=== PATIENT | female | born 1985 | race Caucasian/White ===

== ENCOUNTER 2021-01-31 15:36 | Outpatient (CLI) | payer BC, SELFPAY ==
[2021-01-31 17:35] LABS: Hematocrit 37.4 % (37.0-47.0); Hemoglobin 12.8 g/dL (12.0-15.0); Mean Corpuscular HGB Conc 34.2 g/dl (32-36); Mean Corpuscular Hemoglobin 31.1 pg (26-34); Mean Corpuscular Volume 90.8 fl (80-100); Mean Platelet Volume 10.3 fl (7.4-10.4); Platelet Count Result 242 k/mm3 (150-375); Red Blood Count 4.12 M/mm3 (4.2-5.4); Red Cell Distribution Width 13.8 % (11.5-14.5); White Blood Count 11.1 K/mm3 (4.5-10.0)
[2021-02-01 08:39] LABS: Rapid Plasma Reagin Non-Reactive (NonReactive)
== END 2021-01-31 15:37 | disposition home or self-care (01) ==
PROVIDERS: PCP Obstetrics & Gynecology Gynecology; Visit Provider Obstetrics & Gynecology Gynecology
DX: Z01.818 Encounter for other preprocedural examination (principal)
CPT/HCPCS: 36415; 85027; 86592; 86850; 86900; 86901

== ENCOUNTER 2021-02-01 07:04 | Inpatient (IN) | payer BC, SELFPAY ==
[2021-02-01] VITALS (43 sets, daily range): BP systolic 99–143; BP diastolic 45–126; PULSE 66–100; RESP 16; TEMP 36.6–37.1; O2SAT 92–100; BMI 29.0
--- NOTE | 2021-02-01 07:04 | LDADM ---
This patient, Marce Turcios, was admitted to Labor/Delivery/Recovery 118 on 02/01/21 at 07:04. Plans for labor, pain management and were discussed with patient. Patient/family oriented to hospital policies and general routines including ID bracelet, bed and alarms, visiting hours, pain management, procedures, bathroom and other care routines, personal items, smoking policy, room service/diet and guest tray routines, security routines, and visiting hours. Patient/Family are encouraged to report perceived risks to care and to ask questions if they do not understand what they are told or what they should do. See OBIX for further documentation.
[2021-02-01] MEDS: LACTATED RINGERS 1,000 ML 125 ML IV CONT ×3 (08:18→11:00)
--- NOTE | 2021-02-01 10:05 | WPDHPUPDATE1 ---
History and Physical Update Update Date/Time: 02/01/21 10:05 History and Physical has been reviewed, including an updated exam of the patient. There are NO changes in the patient's condition. Risks, benefits, and alternatives have been discussed and questions answered. Patient agrees to proceed with procedure.
--- NOTE | 2021-02-01 10:05 | PM.IMHP ---
H&P: HPI History of Present Illness Date/Time: 02/01/21 10:05 Chief Complaint: scheduled csection Narrative: 35 yo [id number] 39 weeks here for primary LTCS. Patient prior delivery 7#13oz ROSI. The last u/s at 36 wks gave EFW at 4067 g and FH this week is 47 cm. Discussed options with patient and decided to proceed with primary csection. In addition, patient has completed childbearing and plans BTL. Risks of csection vs vaginal delivery discussed over several visits. Risks of BTL discussed including failure and increased ectopic if fails. Agrees to proceed. [facility] Past Medical History Medical History (Updated 02/01/21 @ 10:12 by Chrissy Chun MD) Pain in right shoulder Surgical History Surgical History (Updated 04/13/20 @ 13:37 by Verna Robert) No history of previous surgery Social History Social History (Updated 04/13/20 @ 13:35 by Verna Robert) Smoking status: Never smoker Tobacco type: cigarettes Second hand tobacco smoke exposure: Yes Alcohol intake: current Drinks per week: 1 Substance use: never Additional occupation/education comments: Customs Inspector at [employer] Gender identity (if verbalized by the patient): Female Spiritual care concerns: No Meds Home Medications and Allergies Home Medications Medication Instructions Recorded Confirmed Type PNV cmb#95-ferrous fumarate-FA 1 tablet PO DAILY 01/07/21 01/07/21 History [] ergocalciferol (vitamin D2) 1,250 mcg PO WEEKLY 01/07/21 01/07/21 History [Vitamin D2] Allergies Allergy/AdvReac Type Severity Reaction Status Date / Time No Known Allergies Allergy Unverified 11/16/14 15:56 Vital Signs Vital Signs - 24 hr 02/01/21 07:27 02/01/21 07:29 Pulse Rate 88 93 Blood Pressure 143/126 H 108/62 Exam Const: General: healthy appearing and comfortable Resp: Effort & Inspection: normal respiratory effort Auscultation: clear to auscultation bilaterally Cardio: Rate: regular rate Rhythm: regular rhythm GI: Inspection: normal to inspection GI Palp: No abdominal tenderness and Yes Other GI palpation findings present (FH 47 cm) Assessment and Plan Assessment and plan (1) 39 weeks gestation of : Code(s): Z3A.39 - 39 weeks gestation of Status: Acute (2) Macrosomia: Code(s): P08.0 - Exceptionally large baby Status: Acute Assessment and Plan: Plan to proceed with Primary LTCS (3) Encounter for sterilization: Code(s): Z30.2 - Encounter for sterilization Status: Acute Assessment and Plan: plan BTL
--- NOTE | 2021-02-01 10:11 | WPDANESEPP ---
Anes - Eval Pre Procedure Procedure: Operation Date: 02/01/21 09:00 Proposed Procedures p Primary Section With Bilateral Tubal Ligation With Fallopian Rings - Chrissy Chun MD Date/Time: 02/01/21 10:11 Surgeon: Dr Chun Preop Diagnosis: Term IUP, Macrosomia Pre Op Diagnosis: c section Patient Data Age: 35 Gender: F Height: 5 ft 6 in Weight: 81.5 kg Last Vital Signs Pulse 93 02/01/21 07:29 BP 108/62 02/01/21 07:29 Allergies Allergy/AdvReac Type Severity Reaction Status Date / Time No Known Allergies Allergy Unverified 11/16/14 15:56 Home Medications Medication Instructions Recorded Confirmed Type PNV cmb#95-ferrous fumarate-FA 1 tablet PO DAILY 01/07/21 01/07/21 History [] ergocalciferol (vitamin D2) 1,250 mcg PO WEEKLY 01/07/21 01/07/21 History [Vitamin D2] : gestational age (ANGELICA 02/08/21, ) Patient hx anesthesia problems: none Family hx anesthesia problems: none [facility] Past Medical History Medical History Pain in right shoulder Surgical History Surgical History No history of previous surgery Social History Social History Smoking status: Never smoker Tobacco type: cigarettes Second hand tobacco smoke exposure: Yes Alcohol intake: current Drinks per week: 1 Substance use: never 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
--- NOTE | 2021-02-01 10:14 | WPDANESEFPP ---
Anes - Eval Final PreProcedure Day of Procedure 02/01/21 10:14 Patient weight: overweight Heart: regular rate and rhythm Lungs: clear to auscultation Airway: Mallampati scale class II Neurological: alert and oriented Last oral intake: >/= 8 hours ASA classification: II Emergent: no Anesthetic plan: proceed Anesthesia type and monitoring: regional spinal and standard monitoring Informed Consent: The patient's anesthetic plan and its attendant risks and benefits were discussed with the patient/family/POA. Questions were solicited and answers provided to the satisfaction of the patient/family/POA.
[2021-02-01] MEDS: ceFAZolin 2 GM/D5W 50 ML 2 GM/50 ML BAG IVPB (10:28)
--- NOTE | 2021-02-01 11:08 | PM.PROC ---
Procedure Note - Detailed Date of procedure: 02/01/21 Pre-op diagnosis: c section Intrauterine at 39 weeks Macrosomia Polyhydramnios Requests sterilization Post-op diagnosis: same Procedure performed: Primary low transverse section and bilateral tubal ligation Description of procedure: The patient was taken to the operating room and placed dorsal supine position with a leftward tilt under spinal anesthesia. She was prepped and draped in the usual sterile fashion. Once anesthesia was deemed adequate a Pfannenstiel skin incision was made with a scalpel and carried down to the underlying layer of fascia. The fascia was nicked in the midline with a scalpel and extended laterally using Nolasco scissors. [facility] so used to tent the fascia which was then dissected off using sharp and blunt dissection. The rectus muscles are in the midline and the peritoneum tented and entered bluntly. The incision was extended laterally with blunt traction. The bladder blade is placed and the vesicouterine peritoneum is tented and entered with Metzenbaum scissors. A bladder flap was created digitally. The bladder blade is replaced. The lower uterine segment was incised with a transverse fashion with a scalpel. The incision is extended laterally using blunt traction. Membranes were ruptured and copious amounts of clear fluid are noted. 2640cc of amniotic fluid. The infant's head was brought into the incision and delivered with the instructional support assistant applying fundal pressure. The remainder of the infant was fully delivered and the cord clamped and cut. The infant is handed off to the waiting nursery nurse. Cord blood is taken. The placenta was removed using manual traction. The uterus is cleared of all clots and debris and exteriorized. The uterine incision is closed using 0 Monocryl in a running, locked fashion and a 2nd layer of same is used to imbricate. The right tube was grasped with a Monica after verifying with the patient 1 last time that she wishes to proceed with tubal ligation. The distal 2/3 of the tube were cross clamped with a Z clamp and excised. The pedicles tied off using 0 Vicryl x2. Identical procedure was performed on the opposite side. Good hemostasis is noted at the uterine incision as well as both pedicles. The cul-de-sac is irrigated, the uterus is returned to the abdomen, and the gutters are irrigated. The incisions and tubal sites are again inspected and noted to be hemostatic. The fascia was closed using 0 Vicryl in a running fashion. Subcutaneous tissues are irrigated and made hemostatic using Bovie cautery. The skin is closed using 4 0 Vicryl in a subcuticular fashion. Dermaflex was placed over the incision. Sponge, instrument, and needle counts are correct per the OR staff. Anesthesia: spinal Surgeon: Chrissy Chun MD Estimated blood loss (mL): 690 Drains: Yes (reynoso) Packing: No Pathology: yes (placenta and tubal segments) Complications: No immediate complications Condition: stable Disposition: floor Findings: Male infant with 9 and 9 Apgars weighing 9 lb 11 oz. Normal-appearing tubes, ovaries, and uterus. 2640 cc amniotic fluid.
--- NOTE | 2021-02-01 11:13 | PM.OBDSVD ---
DS: Admitting Diagnosis Admitting Diagnosis Admitting Diagnosis: IUP 39 wks; macrosomia; polyhydramnios; requests sterilization DS: Discharge Diagnosis Discharge Diagnosis (1) delivery delivered: Code(s): O82 - Encounter for delivery without indication Status: Acute (2) S/P tubal ligation: Code(s): Z98.51 - Tubal ligation status Status: Acute (3) 39 weeks gestation of : Code(s): Z3A.39 - 39 weeks gestation of Status: Acute (4) Macrosomia: Code(s): P08.0 - Exceptionally large baby Status: Acute (5) Encounter for sterilization: Code(s): Z30.2 - Encounter for sterilization Status: Acute OB - DS: Summary OB Procedures : Ultrasound OB Procedures Intrapartum: low cervical, transverse and Tubal ligation OB Procedures: : None Peripartum Data Delivery Method: Section Procedures: Procedures Operation Date: 02/01/21 09:00 <No data on this case meets the specified criteria> complications: none Status at Discharge Functional status at discharge: independent ambulation Overall status at discharge: patient is progressing back to baseline Time Spent with Patient Time attestation: Total time spent providing and/or coordinating discharge services: Discharge Plan Discharge Attending physician on discharge: Chrissy Chun Discharging Clinician: Chrissy Chun Anticipated Discharge Date/Time: 02/04/21 11:15 Patient Disposition: Home, Self-Care Activity: may shower, may drive after 2 weeks and pelvic rest Diet: regular Wound Care Instructions: incision open to air Patient Instructions: Antibiotic Form Stand Alone Forms: General Discharge Information Follow-up/Referrals: Chrissy Chun MD [Physician] - 1 Week (and 6 wk) Discharge Medications: New hydrocodone-acetaminophen 5-325 mg Tablet 1 tablet PO Q3H PRN (Reason: Moderate Pain (4-6)) Qty: 30 RF: 0 Continued ergocalciferol (vitamin D2) [Vitamin D2] 1,250 mcg (50,000 unit) Capsule 1,250 mcg PO WEEKLY RF: 0 PNV cmb#95-ferrous fumarate-FA [] 28 mg iron- 800 mcg Tablet 1 tablet PO DAILY RF: 0 Date of admission: 02/01/21 07:04 Primary Care Provider: PHYSICIAN,SHIFT PRODUCTION ASSOCIATE Admitting Provider: Chrissy Chun Attending physician on admission: Chrissy Chun Condition: Stable
[2021-02-01] MEDS: OXYTOCIN 30 UNITS/NS 500 ML 30 UNITS/500 ML BAG 125 UNITS IV CONT (13:25)
--- NOTE | 2021-02-01 14:45 | PC.NURSE ---
Patient transferred to post room #288 via stretcher. Support person present. Oriented to unit, room, information board, rooming in, admission packet and security measures. Patient verbalizes understanding.
[2021-02-01] MEDS: HYDROcodone/acetaminophen (*CRX) 5-325 MG TABLET 1 TAB PO (20:40)
[2021-02-01] MEDS: IBUPROFEN 600 MG TABLET PO (20:40)
[2021-02-02 04:20] VITALS: BP 104/63; PULSE 72; RESP 16; TEMP 36.7
[2021-02-02] MEDS: SIMETHICONE 80 MG TAB.CHEW PO ×5 (04:30→20:27)
[2021-02-02 06:00] LABS: Basophils Absolute Auto 0.1 K/mm3 (0.0-0.1); Basophils Percent Auto 0.4 % (0.2-1.2); Eosinophils Absolute Auto 0.2 K/mm3 (0-0.3); Eosinophils Percent Auto 1.3 % (0-4.4); Hematocrit 32.6 % (37.0-47.0); Hemoglobin 10.9 g/dL (12.0-15.0); Immature Granulocyte Absolute 0.12 K/mm3 (0.00-0.031); Immature Granulocyte Percent A 0.9 % (0-0.5); Lymphocytes Absolute Auto 1.49 K/mm3 (0.9-3.2); Lymphocytes Percent Auto 10.6 % (18.3-44.2); Mean Corpuscular HGB Conc 33.4 g/dl (32-36); Mean Corpuscular Hemoglobin 30.6 pg (26-34); Mean Corpuscular Volume 91.6 fl (80-100); Mean Platelet Volume 10.6 fl (7.4-10.4); Monocytes Absolute Auto 1.3 K/mm3 (0.1-0.6); Monocytes Percent Auto 9.6 % (2.6-8.5); Neutrophils Absolute Auto 10.8 K/mm3 (1.3-6.7); Neutrophils Percent Auto 77.2 % (45.5-73.1); Platelet Count Result 192 k/mm3 (150-375); Red Blood Count 3.56 M/mm3 (4.2-5.4); Red Cell Distribution Width 13.5 % (11.5-14.5)
[2021-02-02] MEDS: DOCUSATE SODIUM 100 MG CAPSULE PO ×2 (07:29→17:43)
[2021-02-02] MEDS: MULTIVIT/MIN/PREN/FOL AC/IRON TABLET 1 TAB PO (07:30)
[2021-02-02] MEDS: IBUPROFEN 600 MG TABLET PO ×3 (07:30→20:27)
[2021-02-02] MEDS: HYDROcodone/acetaminophen (*CRX) 10-325 MG TABLET 1 TAB PO ×2 (07:31→10:58)
--- NOTE | 2021-02-02 07:51 | WPDANLDPN2 ---
Anes-Prog Note L&D Date/Time: 02/02/21 07:51 Comfortable throughout: section Neuraxial method: spinal Epidural/Spinal procedure site: clean & non-tender Neuro status: Neuro function grossly intact. Cardiovascular status: normal Respiratory status: normal Airway patency: baseline Mental status: baseline Post-Op hydration status: normal Vital Signs: Last Vital Signs Temp 36.7 C 02/02/21 04:20 Pulse 72 02/02/21 04:20 Resp 16 02/02/21 04:20 BP 104/63 02/02/21 04:20 Pulse Ox 99 02/01/21 14:20 Pain score (VAS): 3 I/O: Intake & Output 02/01/21 02/01/21 02/02/21 15:59 23:59 07:59 Intake Total 2050 1490 Output Total 1280 1500 1500 Balance Post-procedural complaints: none Patient feedback: Patient satisfied with anesthetic care.
--- NOTE | 2021-02-02 07:52 | WPDANLDNPN2 ---
Anes-Prog Note L&D-Neuraxial Date/Time: 02/02/21 07:52 Neuraxial medications: intrathecal PF morphine Opiod-related complaints: none Patient feedback: Patient satisfied with post-operative pain management.
[2021-02-02 08:00] VITALS: BP 99/54; PULSE 72; RESP 18; TEMP 37.6; O2SAT 99
[2021-02-02 08:15] VITALS: PULSE 72; RESP 18; O2SAT 99
--- NOTE | 2021-02-02 09:49 | P.PNOB_ITS ---
OB - PN: Subj Subjective Date/time seen: 02/02/21 09:49 doing well has some bloating pain better with meds OB - PN: Obj Data Labs CBC & Chem 7: 02/02/21 04:16 Labs: Laboratory Results - last 24 hr 02/02/21 04:16 WBC 14.0 H RBC 3.56 L Hgb 10.9 L Hct 32.6 L MCV 91.6 MCH 30.6 MCHC 33.4 RDW 13.5 Plt Count 192 MPV 10.6 H Immature Gran % (Auto) 0.9 H Neut % (Auto) 77.2 H Lymph % (Auto) 10.6 L Rapides % (Auto) 9.6 H Eos % (Auto) 1.3 Baso % (Auto) 0.4 Lymph # (Auto) 1.49 Rapides # (Auto) 1.3 H Eos # (Auto) 0.2 Baso # (Auto) 0.1 Abs Immat Gran (auto) 0.12 H Absolute Neuts (auto) 10.8 H Absolute Nucleated RBC 0.0 Nucleated RBC % 0.0 OB - PN A/P Assessment and Plan (1) S/P tubal ligation: Code(s): Z98.51 - Tubal ligation status Status: Acute (2) delivery delivered: Code(s): O82 - Encounter for delivery without indication Status: Acute Assessment and Plan: continue with pp care. Time Spent With Patient Time: Total time spent is greater than 50% in coordination of care (as documented) at patient's floor/unit and/or counseling patient: Exam Narrative: Exam Narrative: incision c/d/i ff At umbilicus
[2021-02-02] MEDS: HYDROcodone/acetaminophen (*CRX) 5-325 MG TABLET 1 TAB PO ×3 (14:49→20:27)
[2021-02-02 20:10] VITALS: BP 112/49; PULSE 69; RESP 18; TEMP 37.3; O2SAT 97
[2021-02-03] MEDS: SIMETHICONE 80 MG TAB.CHEW PO ×3 (03:05→19:07)
[2021-02-03] MEDS: IBUPROFEN 600 MG TABLET PO ×4 (03:05→21:18)
[2021-02-03] MEDS: HYDROcodone/acetaminophen (*CRX) 5-325 MG TABLET 1 TAB PO ×3 (03:06→13:18)
[2021-02-03 09:00] VITALS: PULSE 70; RESP 18; O2SAT 99
[2021-02-03] MEDS: DOCUSATE SODIUM 100 MG CAPSULE PO ×2 (09:05→17:21)
[2021-02-03] MEDS: MULTIVIT/MIN/PREN/FOL AC/IRON TABLET 1 TAB PO (09:06)
--- NOTE | 2021-02-03 09:46 | PM.OBPNVD ---
OB - PN: Subj Subjective Date/time seen: 02/03/21 09:46 S: doing well no complaints OB - PN: Obj Data Labs CBC & Chem 7: 02/02/21 04:16 OB - PN A/P Assessment and Plan (1) delivery delivered: Code(s): O82 - Encounter for delivery without indication Status: Acute Assessment and Plan: continue with pp care. Time Spent With Patient Time: Total time spent is greater than 50% in coordination of care (as documented) at patient's floor/unit and/or counseling patient: Exam Narrative: Exam Narrative: inc c/d/i
[2021-02-03 11:51] VITALS: BP 103/52; PULSE 70; RESP 18; TEMP 36.7; O2SAT 99
[2021-02-03] MEDS: HYDROcodone/acetaminophen (*CRX) 10-325 MG TABLET 1 TAB PO (19:07)
[2021-02-03 19:10] VITALS: BP 115/73; PULSE 72; RESP 18; TEMP 36.4; O2SAT 100
[2021-02-04] MEDS: SIMETHICONE 80 MG TAB.CHEW PO (00:17)
[2021-02-04] MEDS: HYDROcodone/acetaminophen (*CRX) 10-325 MG TABLET 1 TAB PO ×3 (00:17→09:05)
[2021-02-04] MEDS: IBUPROFEN 600 MG TABLET PO ×2 (04:50→12:50)
[2021-02-04 07:50] VITALS: BP 104/66; PULSE 73; RESP 18; TEMP 36.4
[2021-02-04] MEDS: DOCUSATE SODIUM 100 MG CAPSULE PO (09:05)
[2021-02-04] MEDS: MULTIVIT/MIN/PREN/FOL AC/IRON TABLET 1 TAB PO (09:05)
[2021-02-04] MEDS: HYDROcodone/acetaminophen (*CRX) 5-325 MG TABLET 1 TAB PO (12:52)
--- NOTE | 2021-02-04 13:08 | PM.OBPNVD ---
OB - PN: Subj Subjective Date/time seen: 02/04/21 13:08 Patient comments: no complaints and pain well controlled baby status: doing well OB - PN: Obj Data Labs CBC & Chem 7: 02/02/21 04:16 OB - PN A/P Plan day: 3 Plan: routine care, discharge home and follow up 6 weeks (and 1 wk) Time Spent With Patient Time: Total time spent is greater than 50% in coordination of care (as documented) at patient's floor/unit and/or counseling patient: Exam Narrative: Exam Narrative: inc c/d/i : Bimanual exam- vagina & uterus: other (Uterus firm, nt @U)
[2021-02-05 07:54] VITALS: BP 111/74; PULSE 71; RESP 16; TEMP 37; O2SAT 99
== END 2021-02-04 13:39 | disposition home or self-care (01) | DRG 785 ==
LOC: ANHLDR 11:15 → ANHOB2 14:12
PROVIDERS: Admitting Provider Obstetrics & Gynecology Gynecology; Visit Provider Obstetrics & Gynecology Gynecology
PROC: 10D00Z1 Extraction of Products of Conception, Low, Open Approach (ICD-10-PCS; CPT 59514; principal; 2021-02-01 09:00)
DX: O36.63X0 Maternal care for excessive fetal growth, third trimester, not applicable or unspecified (principal); Z37.0 Single live birth; Z3A.39 39 weeks gestation of pregnancy; O40.3XX0 Polyhydramnios, third trimester, not applicable or unspecified; Z30.2 Encounter for sterilization
CPT/HCPCS: 36415; 85025; 88302; 88307; A9270; J0131; J0690; J2210; J2274; J2370; J2405; J2590; J7120